=== PATIENT | male | born 1990 | race Caucasian/White ===

== ENCOUNTER 2019-08-25 09:05 | Emergency (ER) | payer MEDICAID ==
[2019-08-25 09:10] VITALS: BP 145/86
[2019-08-25] MEDS ORDERED: MUPIROCIN 2% OINTMENT 22 GM TP ONE (09:28)
--- NOTE | 2019-08-25 09:30 | ER Document Report ---
ED Skin Rash/Insect Bite/Abscs - General Chief Complaint: Abscess Stated Complaint: ABSCESS/FACIAL Time Seen by Provider: 08/25/19 09:11 Primary Care Provider: [facility] [Provider Group] - Follow up as needed [facility] [Provider Group] - Follow up as needed [facility] [Provider Group] - Follow up as needed [facility] [Provider Group] - Follow up as needed YVON FLORENTINO MD [ACTIVE STAFF] - Follow up as needed JUAN MIGUEL SERRANO MD [ACTIVE STAFF] - Follow up as needed BORA PARIKH MD [ACTIVE STAFF] - Follow up as needed Information source: Patient Notes: 29-year-old male presented to ED for inflamed red tender rash to the left side of his face. This is an impetigo. States rash started 3 weeks ago. His symptoms improved then came back worse. No fever or chills. No other symptoms. The pt is aox4. Resps even and unlabored. - HPI Patient complains to provider of: Skin rash/lesion, Tender/swollen area Onset: Other Onset/Duration: Gradual - We weeks, Persistent, Worse Quality of pain: Sharp Severity: Mild Pain Level: 2 Skin Character: Lesion Quality of rash: Painful Identify cause: Yes - impetigo Exacerbated by: Denies Relieved by: Denies Similar symptoms previously: Yes Recently seen / treated by doctor: No - Related Data Allergies/Adverse Reactions: adhesive tape Allergy (Verified 08/25/19 09:11) eletriptan [From Relpax] Allergy (Verified 08/25/19 09:11) Home Medications: cetirizine, gabapentin, neurotin Past Medical History - General Information source: Patient - Social History Smoking Status: Current Every Day Smoker Cigarette use (# per day): Yes - 5-6 Smoking Education Provided: Yes - 4 min Frequency of alcohol use: Social Drug Abuse: None Occupation: lawn care Lives with: Spouse/Significant other Family History: Reviewed & Not Pertinent Patient has suicidal ideation: No Patient has homicidal ideation: No - Past Medical History Cardiac Medical History: Reports: None Pulmonary Medical History: Reports: None EENT Medical History: Reports: None Neurological Medical History: Reports: None Endocrine Medical History: Reports: None Renal/ Medical History: Reports: None Malignancy Medical History: Reports Hx Lymphoma GI Medical History: Reports: None Musculoskeletal Medical History: Reports Other - Tendinitis Skin Medical History: Reports None Psychiatric Medical History: Reports: None Traumatic Medical History: Reports: None Infectious Medical History: Reports: None Surgical Hx: Negative Past Surgical History: Reports: None - Immunizations Immunizations up to date: Yes Hx Diphtheria, Pertussis, Tetanus Vaccination: Yes - 2019 Review of Systems - Review of Systems Constitutional: No symptoms reported EENT: No symptoms reported Cardiovascular: No symptoms reported Respiratory: No symptoms reported Gastrointestinal: No symptoms reported Genitourinary: No symptoms reported Male Genitourinary: No symptoms reported Musculoskeletal: No symptoms reported Skin: Other - Impetigo face Hematologic/Lymphatic: No symptoms reported Neurological/Psychological: No symptoms reported Physical Exam - Vital signs Vitals: Temp Pulse Resp BP Pulse Ox 99.0 F 91 18 145/86 H 97 08/25/19 09:10 08/25/19 09:10 08/25/19 09:10 08/25/19 09:10 08/25/19 09:10 Interpretation: Normal - General General appearance: Appears well, Alert - HEENT Head: Normocephalic, Atraumatic Eyes: Normal Pupils: PERRL - Respiratory Respiratory status: No respiratory distress Chest status: Nontender Breath sounds: Normal Chest palpation: Normal - Cardiovascular Rhythm: Regular Heart sounds: Normal auscultation Murmur: No - Abdominal Inspection: Normal Distension: No distension Bowel sounds: Normal Tenderness: Nontender Organomegaly: No organomegaly - Back Back: Normal, Nontender - Extremities General upper extremity: Normal inspection, Nontender, Normal color, Normal ROM, Normal temperature General lower extremity: Normal inspection, Nontender, Normal color, Normal ROM, Normal temperature, Normal weight bearing. No: Sarita's sign - Neurological Neuro grossly intact: Yes Cognition: Normal Orientation: AAOx4 Harmans Coma Scale Eye Opening: Spontaneous Herbert Coma Scale Verbal: Oriented Harmans Coma Scale Motor: Obeys Commands Harmans Coma Scale Total: 15 Speech: Normal Motor strength normal: LUE, RUE, LLE, RLE Sensory: Normal - Psychological Associated symptoms: Normal affect, Normal mood - Skin Skin Temperature: Warm Skin Moisture: Dry Skin Color: Normal Location of irregularity: Face - Impetigo Irregularity with: Swelling, Tenderness, Scaling, Crusting, Inflammation Course - Vital Signs Vital signs: Temp Pulse Resp BP Pulse Ox 99.0 F 91 18 145/86 H 97 08/25/19 09:10 08/25/19 09:10 08/25/19 09:10 08/25/19 09:10 08/25/19 09:10 Discharge - Discharge Clinical Impression: Impetigo Condition: Stable Disposition: HOME, SELF-CARE Additional Instructions: Impetigo You have a skin infection called impetigo. This infection is caused by germs growing between the skin layers. It spreads easily and is quite contagious. The usual treatment is with oral antibiotics, along with washing the sores and application of an antibiotic ointment. There's a new prescription antibiotic ointment which may allow some cases of impetigo to be treated without pills. Healing takes about a week. All involved areas should recover with no scarring. If there is significant worsening, or if new symptoms (such as dark urine, fever, chills, or red streaks) arise, call the doctor or return for re- examination. Soap Cleansing Gently wash the wound daily using a mild soap (yellow Dial liquid soap). Use warm water, rubbing gently until all debris, ooze, and crusting have been washed from the wound. Allow to dry briefly (about 10 minutes) after cleaning. Repeat this cleansing at least three times a day for the first two days and then once or twice a day. Epsom Salt Soaks Soak the wound area in a container of warm epsom salt water. If you can't get the wound area into a bucket or borrego, use a folded towel soaked in the epsom salt solution and apply to the area. Use clean hot tap water (about the temperature of a very warm bath), mixing in about one (1) teaspoon for every pint of water. Two gallon --> 16 teaspoons Epsom Salts One gallon --> 8 teaspoons Epsom Salts Two quarts --> 4 teaspoons Epsom Salts One quart --> 2 teaspoons Epsom Salts Soak the wound for about 20 minutes while gently moving it around in the water. Repeat this four (4) times a day. Bactroban Ointment Bactroban is very effective against the germs that cause infection within the skin. It's useful for impetigo and other superficial infections. Deeper i nfections require antibiotics by mouth or by shot. Apply the medicine three times a day for one week, or longer if your doctor has advised it. Stop the medicine and call your doctor if you develop large blisters, severe itching, increasing pain, swelling, fever, or spreading redness. FOLLOW-UP CARE: If you have been referred to a physician for follow-up care, call the physici ans office for an appointment as you were instructed or within the next two days. If you experience worsening or a significant change in your symptoms, notify the physician immediately or return to the Emergency Department at any time for re-evaluation. Prescriptions: Mupirocin [Bactroban 2% Ointment 22 gm] 22 applic TP TID #1 tube Forms: Elevated Blood Pressure, Smoking Cessation Education Referrals: [facility] [Provider Group] - Follow up as needed [facility] [Provider Group] - Follow up as needed [facility] [Provider Group] - Follow up as needed [facility] [Provider Group] - Follow up as needed BORA PARIKH MD [ACTIVE STAFF] - Follow up as needed YVON FLORENTINO MD [ACTIVE STAFF] - Follow up as needed JUAN MIGUEL SERRANO MD [ACTIVE STAFF] - Follow up as needed
== END 2019-08-25 09:35 | disposition home or self-care (01) ==
LOC: ER 09:05
DX: L01.00 Impetigo, unspecified (principal); F17.210 Nicotine dependence, cigarettes, uncomplicated
CPT/HCPCS: 99406; 99283; J3490

== ENCOUNTER 2019-09-22 15:02 | Emergency (ER) | payer MEDICAID ==
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
== END 2019-09-22 15:42 | disposition home or self-care (01) ==
LOC: ER 15:02
DX: Z48.89 Encounter for other specified surgical aftercare (principal)
CPT/HCPCS: 99282